=== PATIENT | male | born 1995 | race African-American/Black ===

== ENCOUNTER 2020-03-26 21:07 | Emergency (ER) | payer MEDICAID ==
[~2020-03-26] VITALS: Ht 182.9 cm; Wt 82.0 kg
[2020-03-26] MEDS ORDERED: FAMOTIDINE 20MG TABLET PO ONE (21:30)
[2020-03-26] MEDS ORDERED: LORAZEPAM 2MG/ML CPJ IV ONE (22:30)
[2020-03-26] MEDS ORDERED: SODIUM CHLORIDE 0.9% 1,000 ML IV ONE (22:30)
[2020-03-27] MEDS ORDERED: SODIUM CHLORIDE 0.9% 1,000 ML IV ONE ×2 (01:45→03:00)
[2020-03-27 02:33] LABS: BASOPHILS % 0.4 % (0.0-2.0); EOSINOPHILS % 1.3 % (0.0-5.0); HEMATOCRIT. 35.5 % (42.0-52.0); HEMOGLOBIN. 11.7 g/dL (14.0-18.0); LYMPHOCYTES % 23.7 % (20.0-50.0); MEAN CORPUSCULAR HEMOGLOBIN 29.2 pg (28.0-32.0); MEAN CORPUSCULAR VOLUME 88.5 fL (80.0-94.0); MEAN PLATELET VOLUME 7.5 fl (7.4-10.4); MONOCYTES % 11.5 % (2.0-8.0); NEUTROPHILS % 63.1 % (40.0-76.0); PLATELET 190 x1000/uL (130-400); RED BLOOD CELL COUNT 4.01 mill/uL (4.7-6.1); RED CELL DISTRIBUTION WIDTH 16.1 % (11.6-14.6)
[2020-03-27 02:37] LABS: CHLORIDE 106 mEq/L (98-107)
[2020-03-27] MEDS ORDERED: PIPERACILLIN/TAZ 3.375G PREMIX 50 ML IV ONE (03:00)
[2020-03-27] MEDS ORDERED: VANCOMYCIN 1 G PREMIX 200 ML IV ONE (03:00)
[2020-03-27 03:06] LABS: *BARBITURATES SCREEN URINE NEGATIVE (NEGATIVE); *BENZODIAZEPINES SCREEN URINE NEGATIVE (NEGATIVE); *COCAINE SCREEN URINE NEGATIVE (NEGATIVE); METHADONE URINE SCREEN NEGATIVE (NEGATIVE)
[2020-03-27 03:07] LABS: *AMPHETAMINES SCREEN URINE NEGATIVE (NEGATIVE); CANNABINOID URINE SCREEN NEGATIVE (NEGATIVE); OPIATES URINE SCREEN NEGATIVE (NEGATIVE); PHENCYCLIDINE URINE SCREEN NEGATIVE (NEGATIVE)
[2020-03-27 07:31] VITALS: BP 122/61
[2020-03-28] MEDS ORDERED: BUSP10TA4 MT (04:40)
[2020-03-28] MEDS ORDERED: QUET300T2 MT (04:40)
[2020-03-28] MEDS ORDERED: DIVA500T3 PO (04:40)
== END 2020-03-27 08:06 | disposition left against medical advice (07) ==
LOC: ER 21:07 → ENRESERV 03-27 08:01 → CANRESERV 03-27 08:01 → ER 03-27 08:06 → CANBEDREQ 03-27 08:18
DX: R07.9 Chest pain, unspecified (principal); R00.2 Palpitations; E87.2 Acidosis; F17.200 Nicotine dependence, unspecified, uncomplicated; F32.9 Major depressive disorder, single episode, unspecified; R56.9 Unspecified convulsions; Z88.6 Allergy status to analgesic agent
CPT/HCPCS: 36415; 71045; 71250; 80053; 80305; 80320; 83605; 84443; 84484; 85025; 87040; 93005; 96361; 96365; 96366; 96368; 96375; 99285; J2060; J2543; J3370; J7030; G0480

== ENCOUNTER 2020-03-27 08:09 | Emergency (ER) | payer MEDICAID ==
[~2020-03-27] VITALS: Ht 182.9 cm; Wt 82.0 kg
[2020-03-27 11:17] LABS: BASOPHILS % 0.6 % (0.0-2.0); EOSINOPHILS % 1.1 % (0.0-5.0); HEMATOCRIT. 37.1 % (42.0-52.0); HEMOGLOBIN. 12.2 g/dL (14.0-18.0); LYMPHOCYTES % 25.4 % (20.0-50.0); MEAN CORPUSCULAR HEMOGLOBIN 29.1 pg (28.0-32.0); MEAN CORPUSCULAR VOLUME 88.5 fL (80.0-94.0); MEAN PLATELET VOLUME 7.5 fl (7.4-10.4); MONOCYTES % 9.6 % (2.0-8.0); NEUTROPHILS % 63.3 % (40.0-76.0); PLATELET 195 x1000/uL (130-400); RED BLOOD CELL COUNT 4.18 mill/uL (4.7-6.1); RED CELL DISTRIBUTION WIDTH 16.2 % (11.6-14.6)
[2020-03-27 11:22] LABS: CHLORIDE 106 mEq/L (98-107)
[2020-03-27 11:27] LABS: PROTHROMBIN TIME 10.3 sec (9.6-11.0)
[2020-03-27] MEDS ORDERED: SODIUM CHLORIDE 0.9% 1000ML BAG (SEPSIS BOLUS) IV ONE (11:45)
[2020-03-27 11:51] LABS: CLARITY URINE CLEAR (CLEAR); COLOR URINE YELLOW (YELLOW); KETONES URINE NEGATIVE (NEGATIVE); LEUKOCYTE ESTERASE URINE NEGATIVE (NEGATIVE); NITRITE URINE NEGATIVE (NEGATIVE); OCCULT BLOOD URINE NEGATIVE (NEGATIVE); PH URINE 8.5 (4.5-8.0); PROTEIN URINE NEGATIVE (NEGATIVE); SPECIFIC GRAVITY URINE 1.012 (1.005-1.030); UROBILINOGEN URINE 0.2 E.U./dL (0.2-1.0)
[2020-03-27] MEDS ORDERED: PIPERACILLIN/TAZ 3.375G PREMIX 50 ML IV ONE (12:00)
[2020-03-27] MEDS ORDERED: VANCOMYCIN 1 G PREMIX 200 ML IV ONE (12:00)
[2020-03-27 12:48] VITALS: BP 108/58
[2020-03-28] MEDS ORDERED: BUSP10TA4 MT (04:40)
[2020-03-28] MEDS ORDERED: DIVA500T3 PO (04:40)
[2020-03-28] MEDS ORDERED: QUET300T2 MT (04:40)
== END 2020-03-27 13:45 | disposition left against medical advice (07) ==
LOC: ER 08:14 → CANBEDREQ 16:23
DX: A41.9 Sepsis, unspecified organism (principal); F32.9 Major depressive disorder, single episode, unspecified; G40.909 Epilepsy, unspecified, not intractable, without status epilepticus; I10 Essential (primary) hypertension; F17.210 Nicotine dependence, cigarettes, uncomplicated; Z71.6 Tobacco abuse counseling; Z88.6 Allergy status to analgesic agent
CPT/HCPCS: 36415; 80053; 81003; 83605; 84145; 84484; 85025; 85610; 87040; 87086; 96365; 99291; 99406; J2543; J3370; J7030

== ENCOUNTER 2020-03-29 15:36 | Emergency (ER) | payer MEDICAID ==
[~2020-03-29] VITALS: Ht 182.9 cm; Wt 81.0 kg
[~2020-03-29 15:36] MED LIST: BUSP10TA4 MT; DIVA500T3 PO; QUET300T2 MT
[2020-03-29] MEDS ORDERED: SODIUM CHLORIDE 0.9% 1,000 ML IV ONE (16:30)
[2020-03-29 17:32] LABS: BASOPHILS % 0.9 % (0.0-2.0); EOSINOPHILS % 3.2 % (0.0-5.0); HEMATOCRIT. 39.9 % (42.0-52.0); HEMOGLOBIN. 13.2 g/dL (14.0-18.0); LYMPHOCYTES % 35.4 % (20.0-50.0); MEAN CORPUSCULAR HEMOGLOBIN 29.6 pg (28.0-32.0); MEAN CORPUSCULAR VOLUME 89.3 fL (80.0-94.0); MEAN PLATELET VOLUME 8.2 fl (7.4-10.4); MONOCYTES % 8.7 % (2.0-8.0); NEUTROPHILS % 51.8 % (40.0-76.0); PLATELET 215 x1000/uL (130-400); RED BLOOD CELL COUNT 4.47 mill/uL (4.7-6.1); RED CELL DISTRIBUTION WIDTH 15.8 % (11.6-14.6)
[2020-03-29 17:38] LABS: CHLORIDE 103 mEq/L (98-107)
[2020-03-29 17:42] LABS: ETHANOL BLOOD < 10 mg/dL
[2020-03-29 17:52] LABS: CLARITY URINE CLEAR (CLEAR); COLOR URINE YELLOW (YELLOW); KETONES URINE NEGATIVE (NEGATIVE); LEUKOCYTE ESTERASE URINE NEGATIVE (NEGATIVE); NITRITE URINE NEGATIVE (NEGATIVE); OCCULT BLOOD URINE NEGATIVE (NEGATIVE); PH URINE 7.5 (4.5-8.0); PROTEIN URINE NEGATIVE (NEGATIVE); SPECIFIC GRAVITY URINE 1.005 (1.005-1.030); UROBILINOGEN URINE 0.2 E.U./dL (0.2-1.0)
[2020-03-29 18:06] LABS: *AMPHETAMINES SCREEN URINE NEGATIVE (NEGATIVE); *BARBITURATES SCREEN URINE NEGATIVE (NEGATIVE)
[2020-03-29 18:07] LABS: *BENZODIAZEPINES SCREEN URINE NEGATIVE (NEGATIVE); *COCAINE SCREEN URINE NEGATIVE (NEGATIVE); METHADONE URINE SCREEN NEGATIVE (NEGATIVE); OPIATES URINE SCREEN NEGATIVE (NEGATIVE); PHENCYCLIDINE URINE SCREEN NEGATIVE (NEGATIVE)
[2020-03-29 18:08] LABS: CANNABINOID URINE SCREEN NEGATIVE (NEGATIVE)
[2020-03-29] MEDS ORDERED: QUETIAPINE FUMARATE 50MG TABLET PO ONE (20:00)
[2020-03-29] MEDS ORDERED: LORAZEPAM 1MG TABLET PO ONE (20:00)
[2020-03-30] MEDS: CHLORPROMAZINE HCL 25 MG TABLET PO SCH ×2 (13:04→23:10)
[2020-03-30 23:06] VITALS: BP 127/68
== END 2020-03-30 23:23 | disposition home or self-care (01) ==
LOC: ER 15:36
DX: R44.0 Auditory hallucinations (principal); I10 Essential (primary) hypertension; Z86.59 Personal history of other mental and behavioral disorders; Z91.013 Allergy to seafood; Z88.6 Allergy status to analgesic agent; Z88.8 Allergy status to other drugs, medicaments and biological substances; Z79.899 Other long term (current) drug therapy
CPT/HCPCS: 36415; 80053; 80305; 80307; 80320; 80329; 81003; 85025; 87635; 93005; 99285; J7030; Q0161; Z7610; G0480

== ENCOUNTER 2022-08-01 20:42 | Emergency (ER) | payer MEDICAID ==
[~2022-08-01] VITALS: Ht 185.4 cm; Wt 78.0 kg
[2022-08-01] MEDS ORDERED: KETOROLAC 30MG/ML VIAL IM ONE (21:45)
[2022-08-01 22:08] VITALS: BP 134/80
[2022-08-01 22:57] LABS: BASOPHILS % 0.9 % (0.0-2.0); EOSINOPHILS % 1.6 % (0.0-5.0); HEMATOCRIT. 41.9 % (42.0-52.0); HEMOGLOBIN. 13.6 g/dL (14.0-18.0); LYMPHOCYTES % 44.2 % (20.0-50.0); MEAN CORPUSCULAR HEMOGLOBIN 27.1 pg (28.0-32.0); MEAN CORPUSCULAR VOLUME 83.5 fL (80.0-94.0); MONOCYTES % 12.5 % (2.0-8.0); NEUTROPHILS % 40.8 % (40.0-76.0); PLATELET 219 x1000/uL (130-400); RED BLOOD CELL COUNT 5.02 mill/uL (4.7-6.1); RED CELL DISTRIBUTION WIDTH 16.6 % (11.6-14.6)
[2022-08-01 23:05] LABS: CHLORIDE 112 mEq/L (98-107)
[2022-08-01] MEDS ORDERED: SODIUM CHLORIDE 0.9% 1,000 ML IV NR (23:15)
[2022-08-01] MEDS ORDERED: FAMOTIDINE 20MG/2ML VIAL IV NR (23:15)
[2022-08-01] MEDS ORDERED: ONDANSETRON HCL 4MG/2ML INJ IV NR (23:15)
[2022-08-02] MEDS ORDERED: FAMOTIDINE 20MG TABLET PO ONE
[2022-08-02] MEDS ORDERED: ONDANSETRON 4MG ODT PO ONE
== END 2022-08-02 00:53 | disposition home or self-care (01) ==
LOC: ER 20:50
DX: R11.0 Nausea (principal); M79.10 Myalgia, unspecified site; R42 Dizziness and giddiness; F32.9 Major depressive disorder, single episode, unspecified; I10 Essential (primary) hypertension
CPT/HCPCS: 36415; 80053; 83690; 85025; 96372; 99283; J1885; Q0162; Z7610

== ENCOUNTER 2022-08-25 19:20 | Emergency (ER) | payer MEDICAID ==
[~2022-08-25] VITALS: Ht 182.9 cm; Wt 180.0 kg
[2022-08-25 19:38] VITALS: BP 135/105
[2022-08-25] MEDS ORDERED: IBUPROFEN 400MG TABLET PO ONE (23:00)
[2022-08-25] MEDS ORDERED: SULFAMETHOXAZOLE/TRIMETHOPRIM 800/160MG TABLET PO ONE (23:00)
[2022-08-25] MEDS ORDERED: CEPHALEXIN 250MG CAPSULE PO ONE (23:00)
[2022-08-25] MEDS ORDERED: SULF1TAB48 MT (23:25)
[2022-08-25] MEDS ORDERED: CEPH500C2 MT (23:25)
[2022-08-25] MEDS ORDERED: NAPR-681 MT (23:25)
[2022-08-25] MEDS ORDERED: BACITRACIN ZINC OINT UDPKT TOP ONE (23:45)
[2022-08-26] MEDS ORDERED: NEOM1PAC6 TP (04:30)
== END 2022-08-25 23:46 | disposition home or self-care (01) ==
LOC: ER 19:20
DX: M79.641 Pain in right hand (principal)
CPT/HCPCS: 73120; 99284

== ENCOUNTER 2022-08-26 00:22 | Emergency (ER) | payer MEDICAID ==
[~2022-08-26] VITALS: Ht 182.9 cm; Wt 82.0 kg
[~2022-08-26 00:22] MED LIST changes: +CEPH500C2 MT; +NAPR-681 MT; +SULF1TAB48 MT
[2022-08-26 00:31] VITALS: BP 133/79
[2022-08-26] MEDS ORDERED: NEOM1PAC6 TP (04:30)
[2022-08-26] MEDS ORDERED: BACITRACIN ZINC OINT UDPKT TOP ONE (04:45)
== END 2022-08-26 04:58 | disposition home or self-care (01) ==
LOC: ER 00:22
DX: Z48.00 Encounter for change or removal of nonsurgical wound dressing (principal)
CPT/HCPCS: 99282